=== PATIENT | female | born 1985 | race Caucasian/White ===

== ENCOUNTER 2018-03-24 11:26 | Emergency (ER) | payer OTHER ==
[~2018-03-24] VITALS: Ht 154.9 cm; Wt 87.6 kg
[2018-03-24 11:35] VITALS: Ht 154.9 cm; Wt 87.6 kg
[2018-03-24 14:00] LABS: UA SPECIFIC GRAVITY <=1.005 (1.005-1.035); microscopic required? YES; urine erythrocyte 1+ (NEGATIVE)
[2018-03-24 14:58] VITALS: BP 118/67
== END 2018-03-24 14:58 | disposition home or self-care (01) ==
LOC: ED 11:26
PROVIDERS: Emergency Medicine
DX: M54.6 Pain in thoracic spine (principal)
CPT/HCPCS: Q0092